=== PATIENT | female | born 1975 | race Caucasian/White ===

== ENCOUNTER 2017-10-03 11:38 | Inpatient (IN) | payer BC ==
[~2017-10-03] VITALS: Ht 160 cm; Wt 112.0 kg
[2017-10-03] MEDS ORDERED: ADENOSINE 6 MG/2 ML VIAL IV ONE ×2 (11:46→12:10)
--- NOTE | 2017-10-03 11:58 | PHYS DOC ---
Past History Past Medical History: Hypertension Past Surgical History: Hysterectomy Smoking: Non-smoker Alcohol Use: None Drug Use: None Adult General Chief Complaint Chief Complaint: RAPID HEART RATE HPI HPI Patient is a 42 year old F who presents with sudden onset of rapid heart rate. She feels that her symptoms are associated palpitations, dull/heavy chest pain in the center of her chest, dizziness and mild headache. The symptoms started just prior to arrival. She arrived via EMS. No interventions were given during transport. She's never had similar symptoms in the past. She does take medication prior blood pressure. She has no other associated symptoms. She has no other exacerbating or alleviating factors. Review of Systems Review of Systems Constitutional: Denies fever or chills [] Eyes: Denies change in visual acuity, redness, or eye pain [] HENT: Denies nasal congestion or sore throat [] Respiratory: Denies cough or shortness of breath [] Cardiovascular: No additional information not addressed in HPI [] GI: Denies abdominal pain, nausea, vomiting, bloody stools or diarrhea [] : Denies dysuria or hematuria [] Musculoskeletal: Denies back pain or joint pain [] Integument: Denies rash or skin lesions [] Neurologic: Denies focal weakness or sensory changes [] Endocrine: Denies polyuria or polydipsia [] All other systems were reviewed and found to be within normal limits, except as documented in this note. Family History Family History No significant cardiac history Current Medications Current Medications Current Medications Medications (Trade) Dose Ordered Sig/Augustin Start Time Stop Time Status Last Admin Dose Admin Adenosine (Adenocard) 6 mg 1X ONCE 10/03/17 12:10 10/03/17 12:11 Metoprolol Tartrate (Lopressor Vial) 5 mg 1X ONCE 10/03/17 12:15 10/03/17 12:16 Allergies Allergies Allergies Coded Allergies Type Severity Reaction Last Updated Verified No Known Drug Allergies 06/12/15 No Physical Exam Physical Exam Constitutional: Well developed, well nourished, non-toxic appearance. [] Mild distress noted HENT: Normocephalic, atraumatic, Eyes: PERRLA, EOMI, conjunctiva normal, no discharge. [] Neck: Normal range of motion, no tenderness, supple, no stridor. [] Cardiovascular: Regular tachycardia Lungs & Thorax: Bilateral breath sounds clear to auscultation [] Abdomen: Bowel sounds normal, soft, no tenderness, no masses, no pulsatile masses. [] Skin: Warm, dry, no erythema, no rash. [] Back: No tenderness, no CVA tenderness. [] Extremities: No tenderness, no cyanosis, no clubbing, ROM intact, no edema. [] Neurologic: Alert and oriented X 3, normal motor function, normal sensory function, no focal deficits noted. [] Psychologic: Affect normal, judgement normal, mood normal. [] Current Patient Data Vital Signs Vital Signs Date Time Temp Pulse Resp B/P (MAP) Pulse Ox O2 Delivery O2 Flow Rate FiO2 10/03/17 12:06 95 18 123/61 (81) 99 Room Air 10/03/17 12:00 111 144/95 10/03/17 11:45 98.5 193 28 98 Room Air Lab Results Laboratory Tests Test 10/03/17 11:49 10/03/17 13:51 White Blood Count 10.2 x10^3/uL (4.0-11.0) Red Blood Count 5.05 x10^6/uL (3.50-5.40) Hemoglobin 15.0 g/dL (12.0-15.5) Hematocrit 44.0 % (36.0-47.0) Mean Corpuscular Volume 87 fL (79-100) Mean Corpuscular Hemoglobin 30 pg (25-35) Mean Corpuscular Hemoglobin Concent 34 g/dL (31-37) Red Cell Distribution Width 13.7 % (11.5-14.5) Platelet Count 336 x10^3/uL (140-400) Neutrophils (%) (Auto) 68 % (31-73) Lymphocytes (%) (Auto) 24 % (24-48) Monocytes (%) (Auto) 7 % (0-9) Eosinophils (%) (Auto) 0 % (0-3) Basophils (%) (Auto) 1 % (0-3) Neutrophils # (Auto) 6.9 x10^3uL (1.8-7.7) Lymphocytes # (Auto) 2.4 x10^3/uL (1.0-4.8) Monocytes # (Auto) 0.8 x10^3/uL (0.0-1.1) Eosinophils # (Auto) 0.0 x10^3/uL (0.0-0.7) Basophils # (Auto) 0.0 x10^3/uL (0.0-0.2) Sodium Level 137 mmol/L (136-145) Potassium Level 4.1 mmol/L (3.5-5.1) Chloride Level 101 mmol/L (98-107) Carbon Dioxide Level 24 mmol/L (21-32) Anion Gap 12 (6-14) Blood Urea Nitrogen 17 mg/dL (7-20) Creatinine 0.8 mg/dL (0.6-1.0) Estimated GFR (Cockcroft-Gault) 79.0 Glucose Level 185 mg/dL (70-99) Calcium Level 9.4 mg/dL (8.5-10.1) Creatine Kinase 45 U/L (26-192) Creatine Kinase MB (Mass) < 0.5 ng/mL (0.0-3.6) Creatine Kinase MB Relative Index 1.1 % (0-4) Troponin I Quantitative 0.064 ng/mL (0-0.055) Lipase 195 U/L (73-393) Urine Collection Type Unknown Urine Color Yellow Urine Clarity Hazy Urine pH 6.5 Urine Specific [place] 1.015 Urine Protein Neg (NEG-TRACE) Urine Glucose (UA) Neg mg/dL (NEG) Urine Ketones (Stick) Neg mg/dL (NEG) Urine Blood Neg (NEG) Urine Nitrite Neg (NEG) Urine Bilirubin Neg (NEG) Urine Urobilinogen Dipstick 0.2 mg/dL (0.2 mg/dL) Urine Leukocyte Esterase Mod (NEG) Urine RBC Rare /HPF (0-2) Urine WBC 5-10 /HPF (0-4) Urine Squamous Epithelial Cells Mod /LPF Urine Bacteria Few /HPF (0-FEW) EKG EKG Initial EKG showed SVT without P waves at a rate of 185. EKG following adenosine and metoprolol showed normal sinus rhythm with a rate of approximately [address] changes. P waves noted with normal spacing. Normal QRS interval. No QT interval abnormalities Radiology/Procedures Radiology/Procedures Critical care time: Greater than 30 minutes. Ashley was found to have ST-T with symptoms of end organ dysfunction including chest pain dizziness and headache. A large-bore left antecubital IV was initiated. After vagal maneuvers and carotid massage failed adenosine 6 mg was given by IV push with reduction in pulse from 180s down to 90s and subsequent rise to 120s to 130s. Cardiology was contacted by phone and recommended an additional dose of metoprolol 5 mg IV. Her heart rate improved with a rate less than 100. Her symptoms moderately improved. She was stable during the remainder of her stay in the emergency room. Course & Med Decision Making Course & Med Decision Making Pertinent Labs and Imaging studies reviewed. (See chart for details) [] Dragon Disclaimer Dragon Disclaimer This electronic medical record was generated, in whole or in part, using a voice recognition dictation system. Departure Departure: Impression: Primary Impression: SVT (supraventricular tachycardia) Additional Impression: Elevated troponin Disposition: ADMITTED INPATIENT Condition: STABLE Referrals: NEISHA SHERWOOD APRN (PCP) Problem Qualifiers BARBARA TRAORE MD Oct 03, 2017 11:58
[2017-10-03 12:06] LABS: BASO % 1 % (0-3); EOS % 0 % (0-3); LYMPH # 2.4 x10^3/uL (1.0-4.8); LYMPH % 24 % (24-48); MEAN CORPUSCULAR HEMOGLOBIN 30 pg (25-35); MEAN CORPUSCULAR HGB CONC 34 g/dL (31-37); MEAN CORPUSCULAR VOLUME 87 fL (79-100); MONO # 0.8 x10^3/uL (0.0-1.1); MONO % 7 % (0-9); NEUT # 6.9 x10^3uL (1.8-7.7); NEUT % 68 % (31-73); PLATELET COUNT 336 x10^3/uL (140-400); RED BLOOD COUNT 5.05 x10^6/uL (3.50-5.40); RED CELL DISTRIBUTION WIDTH 13.7 % (11.5-14.5); WHITE BLOOD COUNT 10.2 x10^3/uL (4.0-11.0)
--- NOTE | 2017-10-03 12:07 | EKG ---
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
[2017-10-03 12:15] LABS: CALCIUM 9.4 mg/dL (8.5-10.1); CREATININE 0.8 mg/dL (0.6-1.0); POTASSIUM 4.1 mmol/L (3.5-5.1)
[2017-10-03] MEDS ORDERED: METOPROLOL TARTRATE 5 MG/5 ML VIAL. IV ONE (12:15)
--- NOTE | 2017-10-03 12:16 | EKG ---
[address] [address] Test Date: 2017-10-03 Test Time: 11:52:41 Pat Name: MICHAEL LAN Department: Room: Gender: F On Site Nurse: CHLOE : 1975 Requested By: BARBARA TRAORE Order Number: [id number] Reading MD: Arvind Kelly MD Measurements Intervals [place] Rate: 126 P: 47 RI: 126 QRS: 28 QRSD: 70 T: 12 QT: 292 QTc: 423 Interpretive Statements SINUS TACHYCARDIA Electronically Signed On 10-03-2017 15:34:16 TIGHT ROPE WALKER by Arvind Kelly MD
[2017-10-03 12:29] LABS: CREATINE KINASE 45 U/L (26-192); LIPASE 195 U/L (73-393)
[2017-10-03 14:08] LABS: BILIRUBIN,URINE NEG (NEG); CLARITY,URINE HAZY; COLOR,URINE YELLOW; GLUCOSE,URINE NEG (NEG)
[2017-10-03 14:09] LABS: BACTERIA,URINE FEW /HPF (0-FEW); NITRITE,URINE NEG (NEG); RBC,URINE RARE /HPF (0-2); SQUAMOUS EPITHELIAL CELL,UR MOD /LPF; UROBILINOGEN,URINE 0.2 mg/dL (0.2 mg/dL)
[2017-10-03] MEDS ORDERED: ACETAMINOPHEN 325 MG TABLET PO PRN (16:30)
[2017-10-03] MEDS ORDERED: METOPROLOL TARTRATE 5 MG/5 ML VIAL. IV PRN (16:30)
[2017-10-03] MEDS ORDERED: DULO60CA6 PO (17:08)
[2017-10-03] MEDS ORDERED: LISI1TAB3 PO (17:08)
[2017-10-03 18:23] VITALS: BP 141/85
[2017-10-03] MEDS: DULoxetine HCL 60 MG CAPSULE.DR PO SCH (20:00)
[2017-10-03 22:00] VITALS: BP 121/62
[2017-10-04 01:46] VITALS: BP 127/65
[2017-10-04 05:59] VITALS: BP 133/71
[2017-10-04 06:20] LABS: BASO % 0 % (0-3); EOS % 1 % (0-3); HEMATOCRIT 41.6 % (36.0-47.0); HEMOGLOBIN 14.2 g/dL (12.0-15.5); LYMPH # 2.5 x10^3/uL (1.0-4.8); LYMPH % 27 % (24-48); MEAN CORPUSCULAR HEMOGLOBIN 30 pg (25-35); MEAN CORPUSCULAR HGB CONC 34 g/dL (31-37); MEAN CORPUSCULAR VOLUME 88 fL (79-100); MONO # 0.7 x10^3/uL (0.0-1.1); MONO % 7 % (0-9); NEUT % 65 % (31-73); PLATELET COUNT 290 x10^3/uL (140-400); RED BLOOD COUNT 4.74 x10^6/uL (3.50-5.40); RED CELL DISTRIBUTION WIDTH 13.4 % (11.5-14.5); WHITE BLOOD COUNT 9.3 x10^3/uL (4.0-11.0)
[2017-10-04 06:25] LABS: ALBUMIN 3.2 g/dL (3.4-5.0); ALBUMIN/GLOBULIN RATIO 0.7 (1.0-1.7); CALCIUM 9.3 mg/dL (8.5-10.1); CREATININE 0.7 mg/dL (0.6-1.0); GFR 92.2; MAGNESIUM 2.1 mg/dL (1.8-2.4); POTASSIUM 4.1 mmol/L (3.5-5.1); TOTAL BILIRUBIN 0.4 mg/dL (0.2-1.0); TOTAL PROTEIN 7.7 g/dL (6.4-8.2)
[2017-10-04] MEDS: DULoxetine HCL 60 MG CAPSULE.DR PO SCH ×2 (08:37→20:46)
[2017-10-04 11:39] VITALS: BP 150/85
--- NOTE | 2017-10-04 14:51 | HP ---
ADMIT DATE: 10/03/2017 REASON FOR ADMISSION: Rapid heart rate. HISTORY OF PRESENT ILLNESS: This is a 42-year-old female who was getting ready for work and noticed that her heart was beating fast. This has occurred when she lived in [place] a few times. She had problems getting her breath. She was sweaty. She felt a heaviness on her chest. This lasted about 40 minutes. took her blood pressure while this was going on and it was 145/110. Ambulance was called. PAST MEDICAL HISTORY: Fibromyalgia and hypertension. PAST SURGICAL HISTORY: Hysterectomy and gallbladder. ALLERGIES: None. MEDICATIONS: Reviewed and are available on the MAR. SOCIAL HISTORY: She does not smoke. 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 She does not do any regular exercise per se. FAMILY HISTORY: Mother has had a history of a rapid heartbeat. Grandfather had a heart attack. Father with an enlarged heart, who is in his 70s. REVIEW OF SYSTEMS: As per HPI. Denies fever, sore throat, or any acute illness. No problems with her bowels or bladder. OBJECTIVE: VITAL SIGNS: Blood pressure 133/71, temperature 97.5, pulse 73, respirations 18, pulse ox 97% on room air. Height 63 inches, weight 247 pounds. GENERAL: Pleasant 42-year-old in no acute distress. HEENT: Her hearing is normal. Her eyes are clear. Nose is patent. Her throat is clear. She has a large tongue relative to small posterior pharynx. NECK: Supple without adenopathy. Thyroid is not enlarged. LUNGS: Clear to auscultation. CARDIOVASCULAR: Regular rhythm and rate. ABDOMEN: Soft, nontender. EXTREMITIES: Without edema. No calf tenderness or thigh tenderness. LABORATORY DATA: CBC was normal. Chemistry: Fasting glucose of 159. Troponin of 0.310, decreased to 0.074. Albumin 3.2, lipase 195. A repeat EKG shows sinus tachycardia. ASSESSMENT: 1. Episode of supraventricular tachycardia was treated with adenosine and metoprolol in the Emergency Room 2. Elevated troponin, most likely demand related. 3. His previous history of rapid heart rate. 4. Morbid obesity. 5. Sleep apnea suspect. 6. Elevated blood pressure. 7. Elevated fasting glucose. PLAN: Cardiology consult. She also had urinalysis showing 10-25,000 colonies of gram-negative rods; however, this is not consistent with her infection. JUSTINA ALVARES DO DR: SHAWNEE/harinder JOB#: [id number] / [id number]
--- NOTE | 2017-10-04 15:20 | CONS ---
DATE OF CONSULTATION: 10/04/2017 REASON FOR CONSULTATION: SVT. HISTORY OF PRESENT ILLNESS: The patient is a pleasant 42-year-old woman who comes in to the hospital with palpitations. She was brought in by EMS and noted to be in SVT with heart rate of 180. Initial vagal maneuvers did not resolve her symptoms and she converted to sinus tachycardia with 6 mg of adenosine. The patient reports that she has had intermittent palpitations over the last several years, but no sustained arrhythmias. No prior episodes of palpitations leading to syncope. No chest pain, orthopnea, PND, or lower extremity edema. She does not describe any exertional dyspnea. No prior coronary artery disease. PAST MEDICAL HISTORY: 1. Hypertension. 2. Possible epilepsy. FAMILY HISTORY: No known family history of arrhythmias or sudden cardiac . ALLERGIES: No known drug allergies. HOME CARDIOVASCULAR MEDICATION: Lisinopril/hydrochlorothiazide 08/31.5. REVIEW OF SYSTEMS: Negative for 10 out of 14 systems reviewed, unless otherwise mentioned above in HPI. PHYSICAL EXAMINATION: VITAL SIGNS: Afebrile, 76, 18, 150/85, 98% on room air. GENERAL: She is alert and oriented, in no acute distress. HEAD AND NECK: Unremarkable. CARDIAC: Regular rate and rhythm without any murmurs, rubs, or gallops. NEUROLOGIC: No focal deficits. MUSCULOSKELETAL: No trauma. LUNGS: Clear to auscultation bilaterally. ABDOMEN: Obese, nontender, nondistended. EXTREMITIES: No clubbing, cyanosis, or edema. DIAGNOSTIC STUDIES: Hemoglobin 14.2, platelets 290, creatinine 0.7. Troponin 0.310, down trending to 0.074. Normal CK and MB sub fractions. EKG demonstrates SVT with likely AV reentrant tachycardia. Repeat EKG after conversion reveals sinus tachycardia without any acute ST or T-wave changes. IMPRESSION: 1. Supraventricular tachycardia. 2. Hypertension. 3. Obesity. 4. Elevated troponin, likely secondary to demand ischemia. RECOMMENDATIONS: At this present time, the patient is doing fairly well. She does not have any obvious risk factors for development of SVT including stimulant use, sleep apnea or any increased stressors. We will start her on low-dose metoprolol therapy. I have discussed with the patient aggressive management including ablation therapy versus continued conservative management. In light of her elevated troponin and history of hypertension, we will obtain a nuclear stress test to rule out any ischemic heart disease to allow us to use the wide spectrum of antiarrhythmic if necessary should she have any new recurrent issues on an outpatient basis. Thank you for this consultation. TIFFANIE HERNANDEZ MD DR: ELIJAH/harinder JOB#: [id number] / [id number]
--- NOTE | 2017-10-04 15:51 | CARD ---
APPROVED REPORT EXAM: Two-dimensional and M-mode echocardiogram with Doppler and color Doppler. Other Information Quality : Good INDICATION Arrhythmia DX SVT WITH ELEVATED TROPONINS 2D DIMENSIONS Left Atrium(2D)3.5 (1.6-4.0cm)IVSd1.2 (0.7-1.1cm) Aortic Root(2D)2.9 (2.0-3.7cm)LVDd3.7 (3.9-5.9cm) LVOT Diameter2.0 (1.8-2.4cm)PWd1.2 (0.7-1.1cm) LVDs2.7 (2.5-4.0cm)FS (%) 28.0 % SV31.8 mlLVEF(%)55.1 (>50%) Aortic Valve AoV Peak Twan.175.8cm/sAoV VTI29.4cm AO Peak GR.12.4mmHgLVOT Peak Twan.138.4cm/s LVOT VTI 24.00cmAO Mean GR.7mmHg SUNITHA (VMAX)2.23lo9DCM (VTI)2.49cm2 Mitral Valve MV E Wqoutwzh10.8cm/sMV DECEL JXNY960eg MV A Ryfmimxn79.9cm/sE/A Ratio1.3 Tricuspid Valve TR P. Zmppibst432uk/sRAP PZQQJBGH0qxVp TR Peak Gr.94lbUfWRZL82lkBh LEFT VENTRICLE The left ventricle is normal size. There is mild concentric left ventricular hypertrophy. Left ventri viviana systolic function is normal. The Ejection Fraction is 55-60%. There is normal LV segmental wall m otion. RIGHT VENTRICLE The right ventricle is normal size. The right ventricular systolic function is normal. ATRIA The left atrium size is normal. The right atrium size is normal. The interatrial septum is intact wit h no evidence for an atrial septal defect or patent foramen ovale as noted on 2-D or Doppler imaging. AORTIC VALVE The aortic valve is normal in structure and function. Doppler and Color Flow revealed no significant aortic regurgitation. There is no significant aortic valvular stenosis. MITRAL VALVE The mitral valve is normal in structure and function. There is no evidence of mitral valve prolapse. There is no mitral valve stenosis. Doppler and Color Flow revealed no mitral valve regurgitation note d. TRICUSPID VALVE The tricuspid valve is normal in structure. Doppler and Color Flow revealed trace tricuspid regurgita tion. There is no pulmonary hypertension. The PA pressure was estimated at 28 mmHg. There is no tricu spid valve prolapse or vegetation. There is no tricuspid valve stenosis. PULMONIC VALVE The pulmonary valve is normal in structure and function. Doppler and Color Flow revealed no pulmonic valvular regurgitation. There is no pulmonic valvular stenosis. GREAT VESSELS The aortic root is normal in size. The ascending aorta is normal in size. The IVC is normal in size a nd collapses >50% with inspiration. PERICARDIAL EFFUSION There is no pleural effusion. There is no evidence of significant pericardial effusion. Critical Notification Critical Value: No <Conclusion> Left ventricle systolic function is normal. The Ejection Fraction is 55-60%. There is normal LV segmental wall motion. Doppler and Color Flow revealed trace tricuspid regurgitation. The PA pressure was estimated at 28 mmHg. There is no evidence of significant pericardial effusion.
[2017-10-04 17:52] VITALS: BP 160/90
[2017-10-04 20:00] VITALS: BP 166/92
[2017-10-04] MEDS ORDERED: LISI1TAB3 PO (20:11)
[2017-10-04] MEDS ORDERED: LISINOPRIL 10 MG TABLET PO SCH (20:30)
[2017-10-04] MEDS ORDERED: hydroCHLOROthiazide 12.5 MG CAPSULE PO SCH (20:30)
[2017-10-05] MEDS ORDERED: ONDANSETRON PF 4 MG/2 ML VIAL. IV PRN
[2017-10-05 00:01] VITALS: BP 144/90
[2017-10-05 07:08] LABS: BASO % 0 % (0-3); EOS % 1 % (0-3); HEMATOCRIT 43.6 % (36.0-47.0); HEMOGLOBIN 14.7 g/dL (12.0-15.5); LYMPH # 2.5 x10^3/uL (1.0-4.8); LYMPH % 25 % (24-48); MEAN CORPUSCULAR HEMOGLOBIN 30 pg (25-35); MEAN CORPUSCULAR HGB CONC 34 g/dL (31-37); MEAN CORPUSCULAR VOLUME 89 fL (79-100); MONO # 0.9 x10^3/uL (0.0-1.1); MONO % 9 % (0-9); NEUT # 6.8 x10^3uL (1.8-7.7); NEUT % 66 % (31-73); PLATELET COUNT 294 x10^3/uL (140-400); RED BLOOD COUNT 4.92 x10^6/uL (3.50-5.40); RED CELL DISTRIBUTION WIDTH 13.6 % (11.5-14.5); WHITE BLOOD COUNT 10.3 x10^3/uL (4.0-11.0)
[2017-10-05 07:38] LABS: ALBUMIN 3.4 g/dL (3.4-5.0); ALBUMIN/GLOBULIN RATIO 0.8 (1.0-1.7); CALCIUM 9.4 mg/dL (8.5-10.1); CREATININE 0.6 mg/dL (0.6-1.0); GFR 110.2; MAGNESIUM 2.1 mg/dL (1.8-2.4); POTASSIUM 4.3 mmol/L (3.5-5.1); TOTAL BILIRUBIN 0.4 mg/dL (0.2-1.0); TOTAL PROTEIN 7.5 g/dL (6.4-8.2)
[2017-10-05] MEDS: DULoxetine HCL 60 MG CAPSULE.DR PO SCH (08:33)
[2017-10-05] MEDS ORDERED: METOPROLOL SUCC 24HR ER 25 MG TAB.ER.24H. PO SCH (09:00)
[2017-10-05 09:18] VITALS: BP 137/92
--- NOTE | 2017-10-05 09:24 | PDOC ---
PROGRESS NOTES Diagnosis Problem Problems Medical Problems: (1) Elevated troponin Status: Acute (2) SVT (supraventricular tachycardia) Status: Acute Assessment Problems Medical Problems: (1) Elevated troponin Status: Acute (2) SVT (supraventricular tachycardia) Status: Acute 1. Supraventricular tachycardia. - no new. continue beta tracy. 2. Hypertension. - fair control on Beta tracy and ACEI. 3. Elevated troponin, likely secondary to demand ischemia. - MPI this am. Home if MPI negative with follow up in office in 4 weeks. Problems: Subjective no new palpitations, no chest pain, no dyspnea, "ready for stress test" Objective Vital Signs Date Time Temp Pulse Resp B/P (MAP) Pulse Ox O2 Delivery O2 Flow Rate FiO2 10/05/17 09:18 97.6 76 20 137/92 (107) 97 Room Air 10/03/17 14:53 2.0 Intake and Output 10/05/17 07:00 Intake Total 720 ml Output Total 1 ml Balance 719 ml Intake Oral 720 ml Output Urine Total 1 ml # Voids 4 Abdomen: Normal bowel sounds, Soft Heart: Regular rate, Normal S1, Normal S2 Extremities: No cyanosis, No edema, Normal pulses General: Alert, Oriented X3, Cooperative, No acute distress Lungs: Clear to auscultation, Normal air movement Neuro: Normal speech, Strength at 5/5 X4 ext Psych/Mental Status: Mental status NL, Mood NL Review of Relevant I have reviewed the following items giovanny (where applicable) has been applied. Labs Laboratory Tests Test 10/03/17 11:49 10/03/17 13:51 10/03/17 16:55 10/04/17 05:50 White Blood Count 10.2 x10^3/uL (4.0-11.0) 9.3 x10^3/uL (4.0-11.0) Red Blood Count 5.05 x10^6/uL (3.50-5.40) 4.74 x10^6/uL (3.50-5.40) Hemoglobin 15.0 g/dL (12.0-15.5) 14.2 g/dL (12.0-15.5) Hematocrit 44.0 % (36.0-47.0) 41.6 % (36.0-47.0) Mean Corpuscular Volume 87 fL (79-100) 88 fL (79-100) Mean Corpuscular Hemoglobin 30 pg (25-35) 30 pg (25-35) Mean Corpuscular Hemoglobin Concent 34 g/dL (31-37) 34 g/dL (31-37) Red Cell Distribution Width 13.7 % (11.5-14.5) 13.4 % (11.5-14.5) Platelet Count 336 x10^3/uL (140-400) 290 x10^3/uL (140-400) Neutrophils (%) (Auto) 68 % (31-73) 65 % (31-73) Lymphocytes (%) (Auto) 24 % (24-48) 27 % (24-48) Monocytes (%) (Auto) 7 % (0-9) 7 % (0-9) Eosinophils (%) (Auto) 0 % (0-3) 1 % (0-3) Basophils (%) (Auto) 1 % (0-3) 0 % (0-3) Neutrophils # (Auto) 6.9 x10^3uL (1.8-7.7) 6.0 x10^3uL (1.8-7.7) Lymphocytes # (Auto) 2.4 x10^3/uL (1.0-4.8) 2.5 x10^3/uL (1.0-4.8) Monocytes # (Auto) 0.8 x10^3/uL (0.0-1.1) 0.7 x10^3/uL (0.0-1.1) Eosinophils # (Auto) 0.0 x10^3/uL (0.0-0.7) 0.0 x10^3/uL (0.0-0.7) Basophils # (Auto) 0.0 x10^3/uL (0.0-0.2) 0.0 x10^3/uL (0.0-0.2) Sodium Level 137 mmol/L (136-145) 136 mmol/L (136-145) Potassium Level 4.1 mmol/L (3.5-5.1) 4.1 mmol/L (3.5-5.1) Chloride Level 101 mmol/L (98-107) 100 mmol/L (98-107) Carbon Dioxide Level 24 mmol/L (21-32) 26 mmol/L (21-32) Anion Gap 12 (6-14) 10 (6-14) Blood Urea Nitrogen 17 mg/dL (7-20) 20 mg/dL (7-20) Creatinine 0.8 mg/dL (0.6-1.0) 0.7 mg/dL (0.6-1.0) Estimated GFR (Cockcroft-Gault) 79.0 92.2 Glucose Level 185 mg/dL (70-99) 159 mg/dL (70-99) Calcium Level 9.4 mg/dL (8.5-10.1) 9.3 mg/dL (8.5-10.1) Creatine Kinase 45 U/L (26-192) Creatine Kinase MB (Mass) < 0.5 ng/mL (0.0-3.6) Creatine Kinase MB Relative Index 1.1 % (0-4) Troponin I Quantitative 0.064 ng/mL (0-0.055) 0.310 ng/mL (0-0.055) 0.074 ng/mL (0-0.055) Lipase 195 U/L (73-393) Urine Collection Type Unknown Urine Color Yellow Urine Clarity Hazy Urine pH 6.5 Urine Specific [place] 1.015 Urine Protein Neg (NEG-TRACE) Urine Glucose (UA) Neg mg/dL (NEG) Urine Ketones (Stick) Neg mg/dL (NEG) Urine Blood Neg (NEG) Urine Nitrite Neg (NEG) Urine Bilirubin Neg (NEG) Urine Urobilinogen Dipstick 0.2 mg/dL (0.2 mg/dL) Urine Leukocyte Esterase Mod (NEG) Urine RBC Rare /HPF (0-2) Urine WBC 5-10 /HPF (0-4) Urine Squamous Epithelial Cells Mod /LPF Urine Bacteria Few /HPF (0-FEW) Magnesium Level 2.2 mg/dL (1.8-2.4) 2.1 mg/dL (1.8-2.4) BUN/Creatinine Ratio 29 (6-20) Total Bilirubin 0.4 mg/dL (0.2-1.0) Aspartate Amino Transf (AST/SGOT) 12 U/L (15-37) Alanine Aminotransferase (ALT/SGPT) 20 U/L (14-59) Alkaline Phosphatase 73 U/L (46-116) Total Protein 7.7 g/dL (6.4-8.2) Albumin 3.2 g/dL (3.4-5.0) Albumin/Globulin Ratio 0.7 (1.0-1.7) Test 10/04/17 23:27 10/05/17 06:12 Glucose (Fingerstick) 148 mg/dL (70-99) White Blood Count 10.3 x10^3/uL (4.0-11.0) Red Blood Count 4.92 x10^6/uL (3.50-5.40) Hemoglobin 14.7 g/dL (12.0-15.5) Hematocrit 43.6 % (36.0-47.0) Mean Corpuscular Volume 89 fL (79-100) Mean Corpuscular Hemoglobin 30 pg (25-35) Mean Corpuscular Hemoglobin Concent 34 g/dL (31-37) Red Cell Distribution Width 13.6 % (11.5-14.5) Platelet Count 294 x10^3/uL (140-400) Neutrophils (%) (Auto) 66 % (31-73) Lymphocytes (%) (Auto) 25 % (24-48) Monocytes (%) (Auto) 9 % (0-9) Eosinophils (%) (Auto) 1 % (0-3) Basophils (%) (Auto) 0 % (0-3) Neutrophils # (Auto) 6.8 x10^3uL (1.8-7.7) Lymphocytes # (Auto) 2.5 x10^3/uL (1.0-4.8) Monocytes # (Auto) 0.9 x10^3/uL (0.0-1.1) Eosinophils # (Auto) 0.0 x10^3/uL (0.0-0.7) Basophils # (Auto) 0.0 x10^3/uL (0.0-0.2) Sodium Level 134 mmol/L (136-145) Potassium Level 4.3 mmol/L (3.5-5.1) Chloride Level 99 mmol/L (98-107) Carbon Dioxide Level 25 mmol/L (21-32) Anion Gap 10 (6-14) Blood Urea Nitrogen 15 mg/dL (7-20) Creatinine 0.6 mg/dL (0.6-1.0) Estimated GFR (Cockcroft-Gault) 110.2 BUN/Creatinine Ratio 25 (6-20) Glucose Level 136 mg/dL (70-99) Calcium Level 9.4 mg/dL (8.5-10.1) Magnesium Level 2.1 mg/dL (1.8-2.4) Total Bilirubin 0.4 mg/dL (0.2-1.0) Aspartate Amino Transf (AST/SGOT) 14 U/L (15-37) Alanine Aminotransferase (ALT/SGPT) 16 U/L (14-59) Alkaline Phosphatase 80 U/L (46-116) Total Protein 7.5 g/dL (6.4-8.2) Albumin 3.4 g/dL (3.4-5.0) Albumin/Globulin Ratio 0.8 (1.0-1.7) Microbiology 10/03/17 Urine Culture - Preliminary, Resulted 10/03/17 Urine Culture Result 1 (ROBBY) - Preliminary, Resulted Medications Current Medications Adenosine (Adenocard) 6 mg STK-MED ONCE IV ; Start 10/03/17 at 11:46; Stop at 11:47; Status DC Adenosine (Adenocard) 6 mg 1X ONCE IV Last administered on 10/03/17 11:47; Start 10/03/17 at 12:10; Stop 10/03/17 at 12:11; Status DC Metoprolol Tartrate (Lopressor Vial) 5 mg 1X ONCE IV Last administered on 12:00; Start 10/03/17 at 12:15; Stop 10/03/17 at 12:16; Status DC Acetaminophen (Tylenol) 650 mg PRN Q6HRS PRN PO Headaches, Temp > 101.5F; Start 10/03/17 at 16:30 Metoprolol Tartrate (Lopressor Vial) 5 mg PRN Q6HRS PRN IV SVT; Start at 16:30 Duloxetine HCl (Cymbalta) 60 mg BID PO Last administered on 10/05/17 08:33; Start 10/03/17 at 21:00 Metoprolol Succinate (Toprol Xl) 25 mg DAILY PO ; Start 10/05/17 at 09:00 Lisinopril (Prinivil) 10 mg QEVNG PO Last administered on 10/04/17 20:46; Start 10/04/17 at 20:30 Hydrochlorothiazide (Microzide) 12.5 mg QEVNG PO Last administered on 20:45; Start 10/04/17 at 20:30 Ondansetron HCl (Zofran) 4 mg PRN Q6HRS PRN IV NAUSEA/VOMITING Last administered on 10/05/17 00:29; Start 10/05/17 at 00:00 Active Scripts Active Reported Lisinopril-Hctz 10-12.5 Mg Tab (Lisinopril/Hydrochlorothiazide) 1 Each Tablet 1 Tab PO QEVNG Cymbalta (Duloxetine Hcl) 60 Mg Capsule.dr 1 Cap PO BID Vitals/I & O Vital Sign - Last 24 Hours 10/04/17 10/04/17 10/04/17 10/04/17 11:39 17:52 20:00 20:00 Temp 97.8 97.8 Pulse 76 85 93 Resp 18 16 20 B/P (MAP) 150/85 (106) 160/90 (113) 166/92 (116) Pulse Ox 98 98 98 O2 Delivery Room Air Room Air Room Air Room Air 10/04/17 10/05/17 10/05/17 20:46 00:01 09:18 Temp 97.6 Pulse 93 74 76 Resp 20 20 B/P (MAP) 166/92 144/90 (108) 137/92 (107) Pulse Ox 97 97 O2 Delivery Room Air Room Air Intake and Output 10/04/17 10/04/17 10/05/17 15:00 23:00 07:00 Intake Total 720 ml Output Total 1 ml Balance 719 ml LYNNETTE KUMAR APRN Oct 05, 2017 09:23
[2017-10-05 10:30] VITALS: BP 138/93
[2017-10-05 11:22] VITALS: BP 138/93
--- NOTE | 2017-10-05 13:10 | RAD ---
APPROVED REPORT Test Type: Exercise Stress Nurse/Tech: GIRMA Grimaldo Test Indications: Tachycardia Cardiac History: HTN Medications: see EHR Medical History: see EHR Resting ECG: SR Resting Heart Rate: 97 bpm Resting Blood Pressure: 165/90mmHg Pretest Chest Pain: None Nurse/Tech Notes Consent: The procedure was explained to the patient in lay terms. Informed consent was witnessed. Karan patino was entered into [employer]. History and Stress Test performed by GIRMA Grimaldo Stress Symptoms Dyspnea some chest pain POST EXERCISE Reason for Termination: Reached target heart rate Target HR: 152 Max HR: 165 bpm Exercise duration: 4 min:sec, 2 Stage Max Blood Pressure: 195/93mmHg Blood Pressure response to exercise: Normal blood pressure response during stress. Heart Rate response to exercise: normal Chest Pain: Yes. INTERPRETATION Stress EKG Conclusion: Chest pain with no acute changes Imaging Protocol IMAGE PROTOCOL: Stress Tc-99m/rest Tc-99m 2 days Rest: Stress: Viability: Radiopharm.Tc99m Sestamibi Dose35.1mCi Duration 12min. Img Date 10/05/2017 Inj-Img [id number]. Post-Injection Exercise: 1 minute Stress Admin Site: IV - Left ForearmAdministrator: GIRMA Grimaldo STRESS DATA End Diast. Vol.77.0mlAv. Heart Efpa840.0bpm LVEDV index BSA1.0mlCardiac Output0.1L/min End Syst. Vol.17.0mlCO Index BSA6.2L/min LVESV index BSA0.0mlMyocardial Pxkr468.0g Eject. Nwjqylah71.0% Stress Rates Pk. Fill Rate4.86EDV/secLVtime Pk. Fill 168.64msec Pk. Empty Rate6.60ESV/secLVtime Pk. Eject97.79msec 11/22 Pk. Fill1.30EDV/sec Stress Scores Regional WT1.00Summed WT3.00 Regional WM0.00Summed WM0.00 The rest and stress images show normal perfusion, normal contraction and thickening. LV Perf. Quant 17 Seg. SSS0.00 Stress Defect Extent (% LAD)0.00Rest Defect Extent (% LAD)Rev. Defect Extent (% LAD)0.00 Stress Defect Extent (% LCX) 0.00Rest Defect Extent (% LCX)Rev. Defect Extent (% LCX)0.00 Stress Defect Extent (% RCA)0.00Rest Defect Extent (% RCA)Rev. Defect Extent (% RCA)0.00 Stress Defect Extent (% CHRIS)0.00Rest Defect Extent (% CHRIS)Rev. Defect Extent (% CHRIS)0.00 Other Information Quality:Good Risk Assessment: Low Risk Conclusion 1. No evidence of EKG changes with stress testing. 2. Normal perfusion at stress/rest. 3. Low risk study. 4. EF > 60%.
[2017-10-05] MEDS ORDERED: METO-239 PO (13:24)
--- NOTE | 2017-10-06 13:45 | PDOC3 ---
Discharge Summary Visit Information Date of Admission: Oct 03, 2017 Date of Discharge: Oct 05, 2017 Final Diagnosis Problems Medical Problems: (1) Elevated troponin Status: Acute (2) SVT (supraventricular tachycardia) Status: Acute ESSMENT: 1. Episode of supraventricular tachycardia was treated with adenosine and metoprolol in the Emergency Room 2. Elevated troponin, most likely demand related. 3. His previous history of rapid heart rate. 4. Morbid obesity. 5. Sleep apnea suspect. 6. Elevated blood pressure. 7. Elevated fasting glucose. Problems: Brief Hospital Course Allergies Allergies Coded Allergies Type Severity Reaction Last Updated Verified No Known Drug Allergies 06/12/15 No Vital Signs Vital Signs Date Time Temp Pulse Resp B/P (MAP) Pulse Ox O2 Delivery O2 Flow Rate FiO2 10/05/17 11:22 106 138/93 10/05/17 10:30 98.0 20 97 Room Air 10/03/17 14:53 2.0 Lab Results Laboratory Tests Test 10/04/17 23:27 10/05/17 06:12 Glucose (Fingerstick) 148 mg/dL (70-99) White Blood Count 10.3 x10^3/uL (4.0-11.0) Red Blood Count 4.92 x10^6/uL (3.50-5.40) Hemoglobin 14.7 g/dL (12.0-15.5) Hematocrit 43.6 % (36.0-47.0) Mean Corpuscular Volume 89 fL (79-100) Mean Corpuscular Hemoglobin 30 pg (25-35) Mean Corpuscular Hemoglobin Concent 34 g/dL (31-37) Red Cell Distribution Width 13.6 % (11.5-14.5) Platelet Count 294 x10^3/uL (140-400) Neutrophils (%) (Auto) 66 % (31-73) Lymphocytes (%) (Auto) 25 % (24-48) Monocytes (%) (Auto) 9 % (0-9) Eosinophils (%) (Auto) 1 % (0-3) Basophils (%) (Auto) 0 % (0-3) Neutrophils # (Auto) 6.8 x10^3uL (1.8-7.7) Lymphocytes # (Auto) 2.5 x10^3/uL (1.0-4.8) Monocytes # (Auto) 0.9 x10^3/uL (0.0-1.1) Eosinophils # (Auto) 0.0 x10^3/uL (0.0-0.7) Basophils # (Auto) 0.0 x10^3/uL (0.0-0.2) Sodium Level 134 mmol/L (136-145) Potassium Level 4.3 mmol/L (3.5-5.1) Chloride Level 99 mmol/L (98-107) Carbon Dioxide Level 25 mmol/L (21-32) Anion Gap 10 (6-14) Blood Urea Nitrogen 15 mg/dL (7-20) Creatinine 0.6 mg/dL (0.6-1.0) Estimated GFR (Cockcroft-Gault) 110.2 BUN/Creatinine Ratio 25 (6-20) Glucose Level 136 mg/dL (70-99) Calcium Level 9.4 mg/dL (8.5-10.1) Magnesium Level 2.1 mg/dL (1.8-2.4) Total Bilirubin 0.4 mg/dL (0.2-1.0) Aspartate Amino Transf (AST/SGOT) 14 U/L (15-37) Alanine Aminotransferase (ALT/SGPT) 16 U/L (14-59) Alkaline Phosphatase 80 U/L (46-116) Total Protein 7.5 g/dL (6.4-8.2) Albumin 3.4 g/dL (3.4-5.0) Albumin/Globulin Ratio 0.8 (1.0-1.7) Vitamin B12 Level 418 pg/mL (247-911) Brief Hospital Course Ms. Duckworth is a 42 old FEMALE WHO PRESENTED TO THE ER WITH SVT WITH A RATE OF 19O. SHE RECEIVED ADENOSINE AND METOPROLOL WHICH CONVERTED HER TO A SINUS TACHYCARDIA. SHE HAD A LEXISCAN TEST WHICH WAS NEGATIVE. SHE WAS SEEN BY CARDIOLOGY AND EXTENSIVELY COUNSELED ON HER OPTIONS SHOULD THE SVT OCCUR WITH ANY REGULARITY. SHE WAS ALSO COUNSELED ABOUT HER BLOOD SUGAR AND HER BLOOD PRESSURE. Discharge Information Condition at Discharge: Improved, Stable Disposition/Orders: D/C to Home Dischare Medications Current Medications Adenosine (Adenocard) 6 mg STK-MED ONCE IV ; Start 10/03/17 at 11:46; Stop at 11:47; Status DC Adenosine (Adenocard) 6 mg 1X ONCE IV Last administered on 10/03/17 11:47; Start 10/03/17 at 12:10; Stop 10/03/17 at 12:11; Status DC Metoprolol Tartrate (Lopressor Vial) 5 mg 1X ONCE IV Last administered on 12:00; Start 10/03/17 at 12:15; Stop 10/03/17 at 12:16; Status DC Acetaminophen (Tylenol) 650 mg PRN Q6HRS PRN PO Headaches, Temp > 101.5F; Start 10/03/17 at 16:30; Stop 10/05/17 at 14:45; Status DC Metoprolol Tartrate (Lopressor Vial) 5 mg PRN Q6HRS PRN IV SVT; Start at 16:30; Stop 10/05/17 at 14:45; Status DC Duloxetine HCl (Cymbalta) 60 mg BID PO Last administered on 10/05/17 08:33; Start 10/03/17 at 21:00; Stop 10/05/17 at 14:45; Status DC Metoprolol Succinate (Toprol Xl) 25 mg DAILY PO Last administered on 11:22; Start 10/05/17 at 09:00; Stop 10/05/17 at 14:45; Status DC Lisinopril (Prinivil) 10 mg QEVNG PO Last administered on 10/04/17 20:46; Start 10/04/17 at 20:30; Stop 10/05/17 at 14:45; Status DC Hydrochlorothiazide (Microzide) 12.5 mg QEVNG PO Last administered on 20:45; Start 10/04/17 at 20:30; Stop 10/05/17 at 14:45; Status DC Ondansetron HCl (Zofran) 4 mg PRN Q6HRS PRN IV NAUSEA/VOMITING Last administered on 10/05/17 00:29; Start 10/05/17 at 00:00; Stop 10/05/17 at 14 :45; Status DC Active Scripts Active Metoprolol Succinate ( Xl ) (Metoprolol Succinate) 25 Mg Tab.er.24h 25 Mg PO DAILY 90 Days get refills from pcp Reported Lisinopril-Hctz 10-12.5 Mg Tab (Lisinopril/Hydrochlorothiazide) 1 Each Tablet 1 Tab PO QEVNG Cymbalta (Duloxetine Hcl) 60 Mg Capsule. 1 Cap PO BID JUSTINA ALVARES DO Oct 06, 2017 13:45
== END 2017-10-05 14:44 | disposition home or self-care (01) | DRG 309 ==
LOC: ER 11:38 → ICU 13:45 → OBSVTOIN 17:52 → 1 SOUTH 10-05 07:34
PROVIDERS: ADMIT Family Medicine; ATTEND Family Medicine
DX: I47.1 Supraventricular tachycardia (principal); I24.8 Other forms of acute ischemic heart disease; E66.01 Morbid (severe) obesity due to excess calories; Z68.41 Body mass index [BMI] 40.0-44.9, adult; G47.30 Sleep apnea, unspecified; I10 Essential (primary) hypertension; M79.7 Fibromyalgia; R79.89 Other specified abnormal findings of blood chemistry; R73.01 Impaired fasting glucose; Z79.899 Other long term (current) drug therapy; Z82.49 Family history of ischemic heart disease and other diseases of the circulatory system; Z90.710 Acquired absence of both cervix and uterus
CPT/HCPCS: 36415; 78452; 80048; 80053; 81001; 82553; 82607; 82947; 83690; 83735; 84484; 85025; 87086; 87186; 93005; 93017; 93306; 96374; 96375; A9500; G0378; G0379; J0153; J2405; J3490; 99291-25

== ENCOUNTER 2018-04-27 23:39 | Emergency (ER) | payer BC ==
[~2018-04-27] VITALS: Ht 160 cm; Wt 112.0 kg
[~2018-04-27 23:39] MED LIST: DULO60CA6 PO; LISI1TAB3 PO; METO-239 PO
[2018-04-27 23:40] VITALS: BP 158/93
--- NOTE | 2018-04-28 00:12 | ED.ADGEN ---
Past History Past Medical History: Fibromyalgia, Hypertension Past Surgical History: Cholecystectomy, Hysterectomy Smoking: Non-smoker Alcohol Use: None Drug Use: None Adult General Chief Complaint Chief Complaint ".. I had this bug bite on my Rt. foot...and it started to get red so .. I went [facility]... and they started me on Bactrim... ".." Now I am itching everywhere.. I took some Benadryl at home... but it did not help...." HPI HPI Patient is a 43 year old male who presents with above hx and complaints of allergic reaction to Bactrim and recent bug bite to Rt. foot. Pt. bug bite area almost not visible. Patient has total body hives and erythema. Multiple excoriations from constant scratching. Breath sounds equal with no significant stridor. Does have some wheezing. Patient denies previous allergy to sulfa but does not remember ever having a sulfa drug. Recently seen at [facility] and started on a back from regimen for right foot bug bite. Patient developed approximate 4 hours after taking Bactrim. No recent travel or specific ill contacts. No history immunosuppression. Review of Systems Review of Systems Constitutional: Denies fever or chills [] Eyes: Denies change in visual acuity, redness, or eye pain [] HENT: Denies nasal congestion or sore throat [] Respiratory: Denies cough or shortness of breath [] Cardiovascular: No additional information not addressed in HPI [] GI: Denies abdominal pain, nausea, vomiting, bloody stools or diarrhea [] : Denies dysuria or hematuria [] Musculoskeletal: Denies back pain or joint pain [] Integument: Complains of extensive hives and itching rash Neurologic: Denies headache, focal weakness or sensory changes [] Endocrine: Denies polyuria or polydipsia [] All other systems were reviewed and found to be within normal limits, except as documented in this note. Family History Family History Non-contributory Current Medications Current Medications Current Medications Medications (Trade) Dose Ordered Sig/Augustin Start Time Stop Time Status Last Admin Dose Admin Albuterol/ Ipratropium (Duoneb) 3 ml 1X ONCE 04/28/18 00:15 04/28/18 00:19 DC 04/28/18 00:27 3 ML Famotidine (Pepcid) 20 mg 1X ONCE 04/28/18 00:15 04/28/18 00:19 DC 04/28/18 00:38 20 MG Magnesium Hydroxide (Milk Of Magnesia) 2,400 mg 1X ONCE 04/28/18 00:15 04/28/18 00:19 DC 04/28/18 00:38 2,400 MG Methylprednisolone Acetate (DEPO-Medrol IM) 40 mg 1X ONCE 04/28/18 00:15 04/28/18 00:18 DC 04/28/18 00:38 40 MG Allergies Allergies Allergies Coded Allergies Type Severity Reaction Last Updated Verified No Known Drug Allergies 06/12/15 No Physical Exam Physical Exam Constitutional: In acute distress, non-toxic appearance. [] HENT: Normocephalic, atraumatic, bilateral external ears normal, oropharynx moist, no oral exudates, nose normal. [] Eyes: PERRLA, EOMI, conjunctiva normal, no discharge. [] Neck: Normal range of motion, no tenderness, supple, no stridor. [] Cardiovascular:Heart rate regular rhythm, no murmur [] Lungs & Thorax: Bilateral breath sounds equal with few scattered wheezes on auscultation [] Abdomen: Bowel sounds normal, soft, no tenderness, no masses, no pulsatile masses. Obese. Old surgery scar Skin: Warm, dry, extensive erythema, hives and excoriations from scratching Back: No tenderness, no CVA tenderness. [] Extremities: No tenderness, no cyanosis, no clubbing, ROM intact, no edema. [] Neurologic: Alert and oriented X 3, normal motor function, normal sensory function, no focal deficits noted. [] Psychologic: Affect anxious, judgement normal, mood normal. [] Current Patient Data Vital Signs Vital Signs Date Time Temp Pulse Resp B/P (MAP) Pulse Ox O2 Delivery O2 Flow Rate FiO2 04/27/18 23:40 98.3 86 16 96 Room Air EKG EKG [] Radiology/Procedures Radiology/Procedures [] Course & Med Decision Making Course & Med Decision Making Pertinent Labs and Imaging studies reviewed. (See chart for details). Patient to stop Bactrim and not take sulfa drugs again. Patient take cool baths and showers. Patient take Zantac 150 twice a day. Patient return if any concerns. Treat insect bite with massage area Polysporin 4 times a day. Return if any concerns. Follow-up primary care. Patient informed that she will continue have hives and itching until Bactrim is out of her system. [] Final Impression Final Impression 1. Allergic Reaction to Bactrim 2. Bug Bite[] Dragon Disclaimer Dragon Disclaimer This electronic medical record was generated, in whole or in part, using a voice recognition dictation system. JAIRO MARTINEZ MD Apr 28, 2018 00:11
[2018-04-28] MEDS ORDERED: FAMOTIDINE 20 MG TABLET PO ONE (00:15)
[2018-04-28] MEDS ORDERED: methylPREDNISolone ACETATE 40 MG/ML VIAL. IM ONE (00:15)
[2018-04-28] MEDS ORDERED: MAGNESIUM HYDROXIDE 2,400 MG/30 ML ORAL.SUSP. PO ONE (00:15)
[2018-04-28] MEDS ORDERED: IPRATRPIUM/ALBUTEROL 0.5/2.5MG 3 ML NEBU. NEB ONE (00:15)
[2018-04-28] MEDS ORDERED: RANI150T21 PO (00:21)
== END 2018-04-28 00:25 | disposition home or self-care (01) ==
LOC: ER 23:39
DX: L50.9 Urticaria, unspecified (principal); T37.0X5A Adverse effect of sulfonamides, initial encounter; I10 Essential (primary) hypertension; M79.7 Fibromyalgia; S90.861A Insect bite (nonvenomous), right foot, initial encounter; W57.XXXA Bitten or stung by nonvenomous insect and other nonvenomous arthropods, initial encounter; Y93.9 Activity, unspecified; Y99.8 Other external cause status; Y92.89 Other specified places as the place of occurrence of the external cause
CPT/HCPCS: 94640; 96372; 99283; J1030; J7620

== ENCOUNTER 2019-04-27 19:34 | Emergency (ER) | payer BC ==
[~2019-04-27] VITALS: Ht 165.1 cm; Wt 108.9 kg
[~2019-04-27 19:34] MED LIST changes: +RANI-376 PO
[2019-04-27] MEDS ORDERED: IV NORMAL SALINE 1,000ML 1,000 ML IV SCH (19:51)
[2019-04-27] MEDS ORDERED: ASPIRIN 81 MG TAB.CHEW PO ONE (20:00)
[2019-04-27 20:26] LABS: BASO # 0.1 x10^3/uL (0.0-0.2); BASO % 1 % (0-3); EOS # 0.1 x10^3/uL (0.0-0.7); EOS % 1 % (0-3); HEMATOCRIT 37.3 % (36.0-47.0); HEMOGLOBIN 12.7 g/dL (12.0-15.5); LYMPH # 2.2 x10^3/uL (1.0-4.8); LYMPH % 31 % (24-48); MEAN CORPUSCULAR HEMOGLOBIN 29 pg (25-35); MEAN CORPUSCULAR HGB CONC 34 g/dL (31-37); MEAN CORPUSCULAR VOLUME 86 fL (79-100); MONO # 0.4 x10^3/uL (0.0-1.1); MONO % 6 % (0-9); NEUT # 4.2 x10^3uL (1.8-7.7); NEUT % 61 % (31-73); PLATELET COUNT 245 x10^3/uL (140-400); RED BLOOD COUNT 4.34 x10^6/uL (3.50-5.40); RED CELL DISTRIBUTION WIDTH 13.2 % (11.5-14.5); WHITE BLOOD COUNT 6.9 x10^3/uL (4.0-11.0)
[2019-04-27 21:05] LABS: BACTERIA,URINE MANY /HPF (0-FEW); BILIRUBIN,URINE NEG (NEG); CLARITY,URINE HAZY; COLOR,URINE YELLOW; GLUCOSE,URINE NEG (NEG); NITRITE,URINE NEG (NEG); RBC,URINE RARE /HPF (0-2); SQUAMOUS EPITHELIAL CELL,UR OCC /LPF; UROBILINOGEN,URINE 0.2 mg/dL (0.2 mg/dL)
--- NOTE | 2019-04-27 21:15 | RAD ---
AP chest x-ray HISTORY: Chest pain. FINDINGS: Mild cardiomegaly. Mediastinal silhouette is normal. No pneumothorax, pulmonary opacities or pleural effusions. The bones are unremarkable. Left shoulder rotator cuff calcific tendinitis. IMPRESSION: No acute process. Mild cardiomegaly. Electronically signed by: Ruben Abraham MD (04/27/2019 9:12 PM) [facility]
--- NOTE | 2019-04-27 21:25 | PHYS DOC ---
Past History Past Medical History: Fibromyalgia, Hypertension, Other Past Surgical History: Cholecystectomy, Hysterectomy, Other Smoking: Non-smoker Alcohol Use: None Drug Use: None Adult General Chief Complaint Chief Complaint: CHEST PAIN HPI HPI Patient is a 44-year-old female who presents with complaint of left shoulder pain that radiates down her arm and into her chest. Patient states that pain is been present since yesterday and is gotten worse today. She states that she had to take her rings off her left hand because her hand was swelling up. She describes the pain as cramping. She denies any nausea, vomiting or diaphoresis. Patient states that nothing is improving her symptoms.[] Review of Systems Review of Systems Constitutional: Denies fever or chills [] Respiratory: Denies cough or shortness of breath [] Cardiovascular: No additional information not addressed in HPI [] GI: Denies abdominal pain, nausea, vomiting or diarrhea [] Musculoskeletal: Denies back pain or joint pain [] Integument: Denies rash or skin lesions [] All other systems were reviewed and found to be within normal limits, except as documented in this note. Current Medications Current Medications Current Medications Medications (Trade) Dose Ordered Sig/Augustin Start Time Stop Time Status Last Admin Dose Admin Aspirin (Children'S Aspirin) 324 mg 1X ONCE 04/27/19 20:00 04/27/19 20:02 DC 04/27/19 20:23 324 MG Sodium Chloride 1,000 ml @ 1,000 mls/hr Q1H 04/27/19 19:51 04/27/19 20:50 DC 04/27/19 20:24 1,000 MLS/HR Allergies Allergies Allergies Coded Allergies Type Severity Reaction Last Updated Verified sulfamethoxazole Allergy Severe hives/ itching 04/06/19 Yes trimethoprim Allergy Severe hives/ itching 04/06/19 Yes Physical Exam Physical Exam Constitutional: Well developed, well nourished, no acute distress, non-toxic appearance. [] HENT: Normocephalic, atraumatic, bilateral external ears normal, oropharynx moist, no oral exudates, nose normal. [] Eyes: PERRLA, EOMI, conjunctiva normal, no discharge. [] Neck: Normal range of motion, no tenderness, supple, no stridor. [] Cardiovascular:Heart rate regular rhythm, no murmur [] Lungs & Thorax: Bilateral breath sounds clear to auscultation [] Abdomen: Bowel sounds normal, soft, no tenderness. [] Skin: Warm, dry, no erythema, no rash. [] Back: There is tenderness to palpation in the area of the left trapezius and levator scapular musculature along with palpable spasm. [] Extremities: No tenderness, no cyanosis, no clubbing, ROM intact. [] Neurologic: Alert and oriented X 3 Current Patient Data Vital Signs Vital Signs Date Time Temp Pulse Resp B/P (MAP) Pulse Ox O2 Delivery O2 Flow Rate FiO2 04/27/19 19:46 98.1 97 18 98 Room Air Lab Results Laboratory Tests Test 04/27/19 20:00 04/27/19 20:25 White Blood Count 6.9 x10^3/uL (4.0-11.0) Red Blood Count 4.34 x10^6/uL (3.50-5.40) Hemoglobin 12.7 g/dL (12.0-15.5) Hematocrit 37.3 % (36.0-47.0) Mean Corpuscular Volume 86 fL (79-100) Mean Corpuscular Hemoglobin 29 pg (25-35) Mean Corpuscular Hemoglobin Concent 34 g/dL (31-37) Red Cell Distribution Width 13.2 % (11.5-14.5) Platelet Count 245 x10^3/uL (140-400) Neutrophils (%) (Auto) 61 % (31-73) Lymphocytes (%) (Auto) 31 % (24-48) Monocytes (%) (Auto) 6 % (0-9) Eosinophils (%) (Auto) 1 % (0-3) Basophils (%) (Auto) 1 % (0-3) Neutrophils # (Auto) 4.2 x10^3uL (1.8-7.7) Lymphocytes # (Auto) 2.2 x10^3/uL (1.0-4.8) Monocytes # (Auto) 0.4 x10^3/uL (0.0-1.1) Eosinophils # (Auto) 0.1 x10^3/uL (0.0-0.7) Basophils # (Auto) 0.1 x10^3/uL (0.0-0.2) Urine Collection Type Unknown Urine Color Yellow Urine Clarity Hazy Urine pH 5.5 Urine Specific Ross 1.025 Urine Protein Neg (NEG-TRACE) Urine Glucose (UA) Neg mg/dL (NEG) Urine Ketones (Stick) Neg mg/dL (NEG) Urine Blood Neg (NEG) Urine Nitrite Neg (NEG) Urine Bilirubin Neg (NEG) Urine Urobilinogen Dipstick 0.2 mg/dL (0.2 mg/dL) Urine Leukocyte Esterase Large (NEG) Urine RBC Rare /HPF (0-2) Urine WBC 1-4 /HPF (0-4) Urine Squamous Epithelial Cells Occ /LPF Urine Bacteria Many /HPF (0-FEW) Urine Mucus Mod /LPF EKG EKG EKG demonstrates normal sinus rhythm with rate of 82.[] Radiology/Procedures Radiology/Procedures [] Impressions: Chest x-ray demonstrates no acute process. Course & Med Decision Making Course & Med Decision Making Pertinent Labs and Imaging studies reviewed. (See chart for details) [] Dragon Disclaimer Dragon Disclaimer This electronic medical record was generated, in whole or in part, using a voice recognition dictation system. Departure Departure: Impression: Primary Impression: Chest wall pain Additional Impressions: Muscle spasm UTI (urinary tract infection) Disposition: HOME, SELF-CARE Condition: STABLE Referrals: GUNNER JANG MD (PCP) Patient Instructions: Chest Wall Pain, Urinary Tract Infection Scripts Ketorolac Tromethamine (KETOROLAC TROMETHAMINE) 10 Mg Tablet 1 TAB PO PRN Q6HRS PRN for PAIN, #20 TAB Prov: ELIZABETH SEGUNDO Jr. DO 04/27/19 Nitrofurantoin Monohyd/M-Cryst (MACROBID 100 MG CAPSULE) 100 Mg Capsule 1 CAP PO BID for infection, #14 CAP Prov: ELIZABETH SEGUNDO Jr. DO 04/27/19 Orphenadrine Citrate (ORPHENADRINE CITRATE) 100 Mg Tablet.er 1 TAB PO BID PRN for MUSCLE SPASMS, #14 TAB Prov: ELIZABETH SEGUNDO Jr. DO 04/27/19 Problem Qualifiers Additional Impressions: UTI (urinary tract infection) Urinary tract infection type: site unspecified Hematuria presence: without hematuria Qualified Codes: N39.0 - Urinary tract infection, site not specified ELIZABETH SEGUNDO Jr. DO Apr 27, 2019 21:25
[2019-04-27 21:27] LABS: ALBUMIN 3.1 g/dL (3.4-5.0); ALBUMIN/GLOBULIN RATIO 0.8 (1.0-1.7); CALCIUM 8.7 mg/dL (8.5-10.1); CREATININE 0.7 mg/dL (0.6-1.0); GFR 91.3; MAGNESIUM 1.7 mg/dL (1.8-2.4); POTASSIUM 3.9 mmol/L (3.5-5.1); TOTAL BILIRUBIN 0.2 mg/dL (0.2-1.0); TOTAL PROTEIN 6.9 g/dL (6.4-8.2)
[2019-04-27] MEDS ORDERED: IV NORMAL SALINE 50ML 50 ML ONE (21:33)
[2019-04-27] MEDS ORDERED: cefTRIAXone SODIUM 1 GM VIAL ONE (21:33)
[2019-04-27] MEDS ORDERED: NITR100C62 PO (22:03)
[2019-04-27] MEDS ORDERED: KETO10TA PO (22:03)
[2019-04-27] MEDS ORDERED: ORPH-16 PO (22:03)
[2019-04-27 22:10] VITALS: BP 147/83
--- NOTE | 2019-04-27 22:20 | EKG ---
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
== END 2019-04-27 22:15 | disposition home or self-care (01) ==
LOC: ER 19:34
DX: M62.838 Other muscle spasm (principal); R07.89 Other chest pain; N39.0 Urinary tract infection, site not specified; M79.7 Fibromyalgia; I10 Essential (primary) hypertension; M25.512 Pain in left shoulder; Z79.82 Long term (current) use of aspirin; Z88.1 Allergy status to other antibiotic agents; Z88.2 Allergy status to sulfonamides
CPT/HCPCS: 36415; 71045; 80053; 81001; 83735; 84484; 85025; 85379; 87086; 87186; 93005; 96365; 99285; J0696; J7030